=== PATIENT | female | born 1965 | race Two or more races ===

== ENCOUNTER 2018-07-14 14:34 | Outpatient (CLI) | payer OTHER | END 2018-07-14 14:44 | disposition home or self-care (01) | LOC: RAD 14:34 | DX: S73.004A Unspecified dislocation of right hip, initial encounter (principal) ==

== ENCOUNTER 2018-08-12 15:07 | Outpatient (CLI) | payer OTHER | END 2018-08-12 15:20 | disposition home or self-care (01) | LOC: RAD 15:07 | DX: M47.812 Spondylosis without myelopathy or radiculopathy, cervical region (principal); M47.814 Spondylosis without myelopathy or radiculopathy, thoracic region; J98.11 Atelectasis ==

== ENCOUNTER 2020-03-27 15:29 | Outpatient (CLI) | payer OTHER | END 2020-03-27 15:37 | disposition home or self-care (01) | LOC: RAD 15:29 | DX: M79.671 Pain in right foot (principal); M79.672 Pain in left foot ==

== ENCOUNTER 2020-06-08 14:42 | Outpatient (CLI) | payer OTHER | END 2020-06-08 14:52 | disposition home or self-care (01) | LOC: LAB 14:42 | DX: Z20.828 Contact with and (suspected) exposure to other viral communicable diseases (principal) ==

== ENCOUNTER 2021-12-26 16:12 | Outpatient (CLI) | payer OTHER | END 2021-12-26 16:14 | disposition home or self-care (01) | LOC: RAD 16:12 | PROVIDERS: ATTEND Physical Medicine & Rehabilitation | DX: M54.59 Other low back pain (principal); M25.562 Pain in left knee ==

== ENCOUNTER 2022-12-03 14:50 | Outpatient (CLI) | payer OTHER | END 2022-12-03 14:58 | disposition home or self-care (01) | LOC: SONOGRAMA 14:50 | PROVIDERS: ATTEND Urology | DX: N32.81 Overactive bladder (principal); R39.15 Urgency of urination; E11.9 Type 2 diabetes mellitus without complications ==

== ENCOUNTER 2022-12-10 16:32 | Emergency (ER) | payer OTHER ==
[~2022-12-10] VITALS: Ht 170.2 cm; Wt 104.3 kg
[2022-12-10] MEDS ORDERED: SYNJARDY XR 101 EACH PO (17:36)
[2022-12-10] MEDS ORDERED: COZAAR25 MG PO (17:37)
[2022-12-10] MEDS ORDERED: ZETIA10 MG (17:37)
[2022-12-10] MEDS ORDERED: JANUMET 50-1,01 EACH PO (17:37)
== END 2022-12-10 21:09 | disposition home or self-care (01) ==
LOC: ER 16:32
DX: M54.32 Sciatica, left side (principal); E11.9 Type 2 diabetes mellitus without complications; Z79.84 Long term (current) use of oral hypoglycemic drugs; E78.00 Pure hypercholesterolemia, unspecified; I10 Essential (primary) hypertension

== ENCOUNTER 2023-01-03 10:51 | Outpatient (CLI) | payer OTHER ==
[~2023-01-03 10:51] MED LIST: COZAAR25 MG PO; JANUMET 50-1,01 EACH PO; SYNJARDY XR 101 EACH PO; ZETIA10 MG
== END 2023-01-03 11:00 | disposition home or self-care (01) ==
LOC: SONOGRAMA 10:51
PROVIDERS: ATTEND Specialist
DX: D17.24 Benign lipomatous neoplasm of skin and subcutaneous tissue of left leg (principal)

== ENCOUNTER 2023-05-29 16:06 | Outpatient (CLI) | payer OTHER | END 2023-05-29 16:16 | disposition home or self-care (01) | LOC: RAD 16:06 | PROVIDERS: ATTEND Radiology Diagnostic Radiology | DX: M24.851 Other specific joint derangements of right hip, not elsewhere classified (principal); M24.852 Other specific joint derangements of left hip, not elsewhere classified ==